=== PATIENT | male | born 1950 | race Caucasian/White ===

== ENCOUNTER → 2018-05-06 | Outpatient (CLI) | payer OTHER | LOC: FIMAGING 08:12 | PROVIDERS: ATTEND Internal Medicine | DX: Z13.6 Encounter for screening for cardiovascular disorders (principal); I10 Essential (primary) hypertension; E78.5 Hyperlipidemia, unspecified; Z82.49 Family history of ischemic heart disease and other diseases of the circulatory system ==

== ENCOUNTER → 2018-05-24 | Outpatient (CLI) | payer OTHER ==
[~2018-05-24] MED LIST: DEPO METHYLPREDNISOLONE 80 MG/ML SDV ONE; IOPAMIDOL (ISOVUE 370) 100 ML BTL IV ONE; LIDOCAINE 1% 300 MG/30 ML SDV ONE; ROPIVACAINE HCL 150 MG/30 ML INJ ONE
== END ==
LOC: FIMAGING 09:38
PROC: 3E0U3BZ Introduction of Anesthetic Agent into Joints, Percutaneous Approach (ICD-10-PCS; principal; 2018-05-24)
PROC: 3E0U33Z Introduction of Anti-inflammatory into Joints, Percutaneous Approach (ICD-10-PCS; 2018-05-24)
DX: M16.12 Unilateral primary osteoarthritis, left hip (principal)
CPT/HCPCS: 20610; 77002; J1040; J2795; Q9967